=== PATIENT | male | born 1980 ===

== ENCOUNTER 2022-04-06 14:05 | Emergency (ER) | payer MEDICAID ==
[~2022-04-06] VITALS: Ht 182.9 cm; Wt 85.9 kg
[2022-04-06 14:35] VITALS: BP 127/81
[2022-04-06] MEDS ORDERED: cephalexin 250mg capsule PO ONE (16:35)
[2022-04-06] MEDS ORDERED: CEPH500C2 PO (16:38)
== END 2022-04-06 17:12 | disposition left against medical advice (07) ==
LOC: ER 14:07
DX: Z48.01 Encounter for change or removal of surgical wound dressing (principal); L03.012 Cellulitis of left finger; S61.213D Laceration without foreign body of left middle finger without damage to nail, subsequent encounter; X58.XXXD Exposure to other specified factors, subsequent encounter
CPT/HCPCS: 99283